=== PATIENT | female | born 1955 | race Caucasian/White ===

== ENCOUNTER 2016-10-22 09:46 | Inpatient (IN) | payer MEDICAID, OTHER ==
[~2016-10-22] VITALS: Ht 160 cm; Wt 106.5 kg
[2016-10-22 11:35] LABS: Basophils # (auto) 0.1 uL; Basophils % (auto) 0.6 % (0.0-2.0); CONDITION Y; Eosinophils # (auto) 0.3 uL; Hematocrit 35.3 % (36.0-46.0); Hemoglobin 12.1 g/dL (12.2-16.2); Lymphocytes # (auto) 1.2 uL; Mean Corpuscular Hemoglobin 31.2 pg (28.0-32.0); Mean Corpuscular Hgb Conc. 34.2 g/dL (32.0-36.0); Mean Corpuscular Volume 91.2 fL (80.0-100.0); Mean Platelet Volume 7.9 fL (6.9-10.8); Monocytes # (auto) 0.9 uL; Monocytes % (auto) 9.3 % (0.0-12.0); Neutrophils # (auto) 7.6 uL; Neutrophils % (auto) 75.1 % (37.0-80.0); Platelet Count (auto) 455 10^3/uL (140-450); Red Cell Distribution Width 13.9 % (11.8-14.3); White Blood Cell 10.2 10^3/uL (4.4-10.8)
[2016-10-22 11:49] LABS: Albumin 3.2 g/dL (3.4-5.0); BUN/Creatinine Ratio 22.6; Bilirubin, Total 0.6 mg/dL (0.2-1.0); Calcium 9.7 mg/dL (8.5-10.1); Potassium 5.2 mmol/L (3.5-5.1); Total Protein 7.7 g/dL (6.4-8.2)
[2016-10-22] MEDS ORDERED: SODIUM CHLORIDE 0.9% 1,000 ML IV ONE (13:19)
[2016-10-22] MEDS ORDERED: NALBUPHINE HCL 10 MG/1ml INJECTION IV ONE (13:30)
[2016-10-22] MEDS ORDERED: METOCLOPRAMIDE HCL 5MG/ml INJ 2ml VIAL IV ONE (13:30)
[2016-10-22 14:01] LABS: Urine Bilirubin Negative (Negative); Urine Blood Negative /uL (Negative); Urine Color Yellow (Yellow); Urine Glucose Normal (Normal); Urine Ketone Negative (Negative); Urine Nitrite Negative (Negative); Urine RBC <1 /hpf (0 - 4); Urine Urobilinogen Normal (Negative)
[2016-10-22 14:13] LABS: Magnesium 2.8 mg/dL (1.6-2.6)
[2016-10-22] MEDS ORDERED: cefTRIAXone 1GM/50ML D5W 50 ML IV ONE (15:30)
[2016-10-22] MEDS ORDERED: CLINDAMYCIN 300MG IV 50 ML IV ONE (15:45)
[2016-10-22] MEDS ORDERED: TEMAZEPAM 15 MG CAP PO PRN (16:00)
[2016-10-22] MEDS ORDERED: ACETAMINOPHEN 325 MG TAB PO PRN (16:00)
[2016-10-22] MEDS ORDERED: SODIUM POLYSTYRENE SULF 15GM/60ML SUSP PO ONE (16:00)
[2016-10-22 16:57] LABS: INR 0.99 (0.9-1.15); Prothrombin Time 10.8 sec (9.37-12.3)
[2016-10-22] MEDS: FAMOTIDINE 20 MG TAB PO SCH (17:10)
[2016-10-22] MEDS: CLINDAMYCIN 300MG IV 50 ML IV SCH (21:53)
[2016-10-22] MEDS: SODIUM CHLOR 0.9% PF (SALINE LOCK) 10ML VIAL IV SCH (21:53)
[2016-10-22] MEDS: ASCORBIC ACID 500 MG TAB PO SCH (21:54)
[2016-10-22 22:00] VITALS: BP 148/80
[2016-10-23] VITALS (7 sets, daily range): BP systolic 91–133; BP diastolic 57–92
[2016-10-23] MEDS: MORPHINE SULF INJ 2 MG/ML SYRINGE 1ML IV PRN ×3 (03:47→20:06)
[2016-10-23 05:46] LABS: Basophils # (auto) 0.1 uL; Basophils % (auto) 0.5 % (0.0-2.0); CONDITION Y; Eosinophils # (auto) 0.3 uL; Eosinophils % (auto) 2.5 % (0.0-7.0); Hematocrit 34.3 % (36.0-46.0); Hemoglobin 11.7 g/dL (12.2-16.2); Lymphocytes # (auto) 1.7 uL; Mean Corpuscular Hemoglobin 31.2 pg (28.0-32.0); Mean Corpuscular Hgb Conc. 34.2 g/dL (32.0-36.0); Mean Corpuscular Volume 91.4 fL (80.0-100.0); Mean Platelet Volume 7.5 fL (6.9-10.8); Monocytes % (auto) 9.2 % (0.0-12.0); Neutrophils # (auto) 7.8 uL; Neutrophils % (auto) 71.8 % (37.0-80.0); Platelet Count (auto) 498 10^3/uL (140-450); Red Cell Distribution Width 13.7 % (11.8-14.3); White Blood Cell 10.9 10^3/uL (4.4-10.8)
[2016-10-23] MEDS: CLINDAMYCIN 300MG IV 50 ML IV SCH ×3 (05:51→22:09)
[2016-10-23] MEDS: SODIUM CHLOR 0.9% PF (SALINE LOCK) 10ML VIAL IV SCH ×3 (05:53→22:09)
[2016-10-23 06:24] LABS: BUN/Creatinine Ratio 26.3; Bilirubin, Total 0.4 mg/dL (0.2-1.0); Calcium 9.6 mg/dL (8.5-10.1); Total Protein 7.5 g/dL (6.4-8.2)
[2016-10-23] MEDS: HYDROcodone-ACET 5/325MG TAB PO PRN ×2 (08:13→16:06)
[2016-10-23] MEDS: ASCORBIC ACID 500 MG TAB PO SCH ×2 (09:10→22:09)
[2016-10-23] MEDS: ZINC SULFATE 220 MG CAP PO SCH (09:10)
[2016-10-23] MEDS: cefTRIAXone 1GM/50ML D5W 50 ML IV SCH (09:10)
[2016-10-23] MEDS: MULTIPLE VITAMIN TAB PO SCH (09:10)
[2016-10-23] MEDS: FAMOTIDINE 20 MG TAB PO SCH (09:10)
[2016-10-23 10:58] LABS: Vitamin B12 1239 pg/mL (211-911)
[2016-10-23] MEDS: THIAMINE INJ 100 MG, MULTIPLE VITAMIN 10 ML, FOLIC ACID 1 MG, MAGNESIUM SULF SDV 50% 8 ... IV SCH ×5 (12:03)
[2016-10-23] MEDS: ONDANSETRON HCL 4 MG/2 ML VIAL IV PRN (13:39)
[2016-10-24 05:00] VITALS: BP_SYST 115; BP_SYST 122; BP_DIAS 65; BP_DIAS 71
[2016-10-24 05:08] LABS: Thyroxine (T4) 6.4 ug/dL (4.5-12.0)
[2016-10-24 05:08] LABS: Rheumatoid Arthritis Factor <10.0 IU/mL (0.0-13.9)
[2016-10-24] MEDS: CLINDAMYCIN 300MG IV 50 ML IV SCH ×3 (05:42→21:49)
[2016-10-24] MEDS: SODIUM CHLOR 0.9% PF (SALINE LOCK) 10ML VIAL IV SCH ×3 (05:43→21:49)
[2016-10-24] MEDS: cefTRIAXone 1GM/50ML D5W 50 ML IV SCH ×2 (08:26→21:49)
[2016-10-24] MEDS: ZINC SULFATE 220 MG CAP PO SCH (08:26)
[2016-10-24] MEDS: FAMOTIDINE 20 MG TAB PO SCH (08:26)
[2016-10-24] MEDS: MULTIPLE VITAMIN TAB PO SCH (08:26)
[2016-10-24 09:00] VITALS: BP 121/48
[2016-10-24] MEDS: HYDROcodone-ACET 5/325MG TAB PO PRN ×4 (09:26→23:50)
[2016-10-24] MEDS: ASCORBIC ACID 500 MG TAB PO SCH ×2 (09:26→23:51)
[2016-10-24 13:00] VITALS: BP 109/64
[2016-10-24] MEDS: THIAMINE INJ 100 MG, MULTIPLE VITAMIN 10 ML, FOLIC ACID 1 MG, MAGNESIUM SULF SDV 50% 8 ... IV SCH ×5 (13:12)
[2016-10-24 17:00] VITALS: BP 134/74
[2016-10-24] MEDS: DOCUSATE SOD 100 MG CAP PO PRN (19:38)
[2016-10-25 00:25] VITALS: BP 143/83
[2016-10-25] MEDS: CLINDAMYCIN 300MG IV 50 ML IV SCH ×3 (05:07→22:23)
[2016-10-25] MEDS: SODIUM CHLOR 0.9% PF (SALINE LOCK) 10ML VIAL IV SCH ×3 (05:07→22:23)
[2016-10-25] MEDS: HYDROcodone-ACET 5/325MG TAB PO PRN ×3 (05:07→22:23)
[2016-10-25 05:45] VITALS: BP 155/78
[2016-10-25 06:44] LABS: Potassium 4.3 mmol/L (3.5-5.1)
[2016-10-25 06:51] LABS: Albumin 2.7 g/dL (3.4-5.0); Calcium 9.8 mg/dL (8.5-10.1)
[2016-10-25 07:02] LABS: Bilirubin, Total 0.2 mg/dL (0.2-1.0); Total Protein 6.6 g/dL (6.4-8.2)
[2016-10-25 08:58] VITALS: BP 142/82
[2016-10-25] MEDS: ZINC SULFATE 220 MG CAP PO SCH (10:00)
[2016-10-25] MEDS: ASCORBIC ACID 500 MG TAB PO SCH ×2 (10:00→22:23)
[2016-10-25] MEDS: FAMOTIDINE 20 MG TAB PO SCH (10:00)
[2016-10-25] MEDS: MULTIPLE VITAMIN TAB PO SCH (10:00)
[2016-10-25] MEDS: MORPHINE SULF INJ 2 MG/ML SYRINGE 1ML IV PRN (12:04)
[2016-10-25 13:00] VITALS: BP 158/103
[2016-10-25 13:07] LABS: Antiproteinase 3 (PR-3) Ab <3.5 U/mL (0.0-3.5)
[2016-10-25] MEDS ORDERED: ceFAZolin 1GM/50ML D5W 50 ML IV ONE (13:28)
[2016-10-25] MEDS ORDERED: BUPIVACAINE 0.75% INJ 10ML MPV SDV IJ ONE (13:56)
[2016-10-25] MEDS ORDERED: ceFAZolin 1GM VL ONE (13:56)
[2016-10-25] MEDS ORDERED: fentaNYL CITRATE 100 MCG/2 ML VL ONE (14:17)
[2016-10-25] MEDS ORDERED: PROPOFOL 10 MG/ML 20 ML IV ONE (14:17)
[2016-10-25] MEDS ORDERED: fentaNYL CITRATE 5 ML ONE (14:21)
[2016-10-25] MEDS ORDERED: MORPHINE SULF INJ 2 MG/ML SYRINGE 1ML ONE (14:56)
[2016-10-25] MEDS ORDERED: ONDANSETRON HCL 4 MG/2 ML VIAL ONE (14:58)
[2016-10-25] MEDS ORDERED: ePHEDrine SULFATE 50 MG/ML AMP IV PRN (15:00)
[2016-10-25] MEDS ORDERED: MORPHINE SULF INJ 2 MG/ML SYRINGE 1ML IV PRN (15:00)
[2016-10-25] MEDS ORDERED: hydrALAZINE HCL 20 MG/ML VL IV PRN (15:00)
[2016-10-25] MEDS ORDERED: ONDANSETRON HCL 4 MG/2 ML VIAL IV ONE (15:00)
[2016-10-25] MEDS: THIAMINE INJ 100 MG, MULTIPLE VITAMIN 10 ML, FOLIC ACID 1 MG, MAGNESIUM SULF SDV 50% 8 ... IV SCH ×5 (15:54)
[2016-10-25 17:00] VITALS: BP 155/90
[2016-10-25 22:00] VITALS: BP 149/91
[2016-10-26] MEDS: HYDROcodone-ACET 5/325MG TAB PO PRN ×4 (04:38→20:38)
[2016-10-26 05:00] VITALS: BP 155/89
[2016-10-26] MEDS: CLINDAMYCIN 300MG IV 50 ML IV SCH ×3 (05:48→20:38)
[2016-10-26] MEDS: SODIUM CHLOR 0.9% PF (SALINE LOCK) 10ML VIAL IV SCH ×3 (05:49→20:37)
[2016-10-26 06:14] LABS: Potassium 4.7 mmol/L (3.5-5.1)
[2016-10-26 06:18] LABS: Albumin 2.8 g/dL (3.4-5.0); BUN/Creatinine Ratio 24.6
[2016-10-26 06:20] LABS: Bilirubin, Total 0.2 mg/dL (0.2-1.0)
[2016-10-26 08:00] VITALS: BP 150/96
[2016-10-26] MEDS: DOCUSATE SOD 100 MG CAP PO PRN (09:38)
[2016-10-26] MEDS: ASCORBIC ACID 500 MG TAB PO SCH ×2 (09:38→20:38)
[2016-10-26] MEDS: FAMOTIDINE 20 MG TAB PO SCH (09:38)
[2016-10-26] MEDS: MULTIPLE VITAMIN TAB PO SCH (09:38)
[2016-10-26] MEDS: cefTRIAXone 1GM/50ML D5W 50 ML IV SCH (09:38)
[2016-10-26] MEDS: ZINC SULFATE 220 MG CAP PO SCH (09:38)
[2016-10-26 12:00] VITALS: BP 148/82
[2016-10-26] MEDS: THIAMINE INJ 100 MG, MULTIPLE VITAMIN 10 ML, FOLIC ACID 1 MG, MAGNESIUM SULF SDV 50% 8 ... IV SCH ×5 (12:00)
[2016-10-26] MEDS: ALBUTEROL SULF 2.5 MG/0.5ML(0.5%) NEB SOLN NEB PRN ×2 (13:28→23:06)
[2016-10-26 16:11] VITALS: BP 148/82
[2016-10-26 17:00] VITALS: BP 160/97
[2016-10-26] MEDS: cloNIDine HCL 0.1 MG TAB PO PRN (18:04)
[2016-10-26 21:57] VITALS: BP 157/81
[2016-10-27] MEDS: HYDROcodone-ACET 5/325MG TAB PO PRN ×4 (02:10→23:28)
[2016-10-27] MEDS: DOCUSATE SOD 100 MG CAP PO PRN ×2 (02:10→10:08)
[2016-10-27 05:00] VITALS: BP 158/89
[2016-10-27] MEDS: CLINDAMYCIN 300MG IV 50 ML IV SCH ×3 (06:13→20:56)
[2016-10-27] MEDS: SODIUM CHLOR 0.9% PF (SALINE LOCK) 10ML VIAL IV SCH ×3 (06:13→20:56)
[2016-10-27] MEDS: MORPHINE SULF INJ 2 MG/ML SYRINGE 1ML IV PRN ×3 (06:49→20:57)
[2016-10-27 06:58] LABS: Albumin 2.6 g/dL (3.4-5.0); Calcium 9.4 mg/dL (8.5-10.1); Potassium 4.3 mmol/L (3.5-5.1)
[2016-10-27 07:02] LABS: Bilirubin, Total 0.2 mg/dL (0.2-1.0); Total Protein 6.4 g/dL (6.4-8.2)
[2016-10-27 08:13] VITALS: BP 154/87
[2016-10-27] MEDS: ALBUTEROL SULF 2.5 MG/0.5ML(0.5%) NEB SOLN NEB PRN ×2 (08:29→23:20)
[2016-10-27] MEDS: cefTRIAXone 1GM/50ML D5W 50 ML IV SCH (10:08)
[2016-10-27] MEDS: ASCORBIC ACID 500 MG TAB PO SCH ×2 (10:08→20:57)
[2016-10-27] MEDS: MULTIPLE VITAMIN TAB PO SCH (10:08)
[2016-10-27] MEDS: ZINC SULFATE 220 MG CAP PO SCH (10:08)
[2016-10-27] MEDS: FAMOTIDINE 20 MG TAB PO SCH (10:08)
[2016-10-27] MEDS: THIAMINE INJ 100 MG, MULTIPLE VITAMIN 10 ML, FOLIC ACID 1 MG, MAGNESIUM SULF SDV 50% 8 ... IV SCH ×5 (12:16)
[2016-10-27] MEDS: ONDANSETRON HCL 4 MG/2 ML VIAL IV PRN (12:19)
[2016-10-27 12:24] VITALS: BP 157/105
[2016-10-27 17:00] VITALS: BP 161/109
[2016-10-27] MEDS: cloNIDine HCL 0.1 MG TAB PO PRN (17:28)
[2016-10-27 21:02] VITALS: BP 155/90
[2016-10-28] MEDS: MORPHINE SULF INJ 2 MG/ML SYRINGE 1ML IV PRN (04:05)
[2016-10-28] MEDS: cloNIDine HCL 0.1 MG TAB PO PRN ×3 (05:29→17:16)
[2016-10-28] MEDS: CLINDAMYCIN 300MG IV 50 ML IV SCH ×2 (05:30→14:00)
[2016-10-28] MEDS: SODIUM CHLOR 0.9% PF (SALINE LOCK) 10ML VIAL IV SCH ×2 (05:31→14:00)
[2016-10-28 05:35] VITALS: BP 152/81
[2016-10-28 05:36] VITALS: BP 164/82
[2016-10-28] MEDS: ZINC SULFATE 220 MG CAP PO SCH (08:34)
[2016-10-28] MEDS: MULTIPLE VITAMIN TAB PO SCH (08:34)
[2016-10-28] MEDS: ASCORBIC ACID 500 MG TAB PO SCH (08:34)
[2016-10-28] MEDS: FAMOTIDINE 20 MG TAB PO SCH (08:34)
[2016-10-28] MEDS: cefTRIAXone 1GM/50ML D5W 50 ML IV SCH (08:34)
[2016-10-28 10:04] VITALS: BP 143/83
[2016-10-28] MEDS: HYDROcodone-ACET 5/325MG TAB PO PRN ×2 (10:31→15:56)
[2016-10-28] MEDS: THIAMINE INJ 100 MG, MULTIPLE VITAMIN 10 ML, FOLIC ACID 1 MG, MAGNESIUM SULF SDV 50% 8 ... IV SCH ×5 (11:56)
[2016-10-28 12:17] VITALS: BP 152/80
[2016-10-28] MEDS ORDERED: LEVO125T6 PO (12:47)
[2016-10-28] MEDS ORDERED: ASP81EC PO (12:47)
[2016-10-28] MEDS ORDERED: OMEP20CA74 PO (12:47)
[2016-10-28] MEDS ORDERED: LOR05T PO (12:47)
[2016-10-28] MEDS ORDERED: POTA10TA34 PO (12:47)
[2016-10-28] MEDS ORDERED: PRED1PAK9 PO (12:47)
[2016-10-28] MEDS ORDERED: GABA-497 PO (12:47)
[2016-10-28] MEDS ORDERED: SIMV-13 PO (12:47)
[2016-10-28 16:15] VITALS: BP 165/105
[2016-10-28 18:14] VITALS: BP 130/80
== END 2016-10-28 19:29 | disposition home or self-care (01) | DRG 364 ==
LOC: ER 09:46 → EDBD 09:46 → TELE 09:47 → EAST 17:50
PROVIDERS: ADMIT Internal Medicine; ATTEND Internal Medicine
PROC: 0QBQ0ZZ Excision of Right Toe Phalanx, Open Approach (ICD-10-PCS; 2016-10-25)
PROC: 0QBR0ZZ Excision of Left Toe Phalanx, Open Approach (ICD-10-PCS; principal; 2016-10-25 14:10)
DX: E11.621 Type 2 diabetes mellitus with foot ulcer (principal); L97.529 Non-pressure chronic ulcer of other part of left foot with unspecified severity; L97.519 Non-pressure chronic ulcer of other part of right foot with unspecified severity; N17.0 Acute kidney failure with tubular necrosis; G93.41 Metabolic encephalopathy; I13.2 Hypertensive heart and chronic kidney disease with heart failure and with stage 5 chronic kidney disease, or end stage renal disease; L03.032 Cellulitis of left toe; Z68.41 Body mass index [BMI] 40.0-44.9, adult; E44.0 Moderate protein-calorie malnutrition; E66.01 Morbid (severe) obesity due to excess calories; E87.1 Hypo-osmolality and hyponatremia; N18.6 End stage renal disease; E87.5 Hyperkalemia; E03.9 Hypothyroidism, unspecified; E11.22 Type 2 diabetes mellitus with diabetic chronic kidney disease; L03.031 Cellulitis of right toe; E83.41 Hypermagnesemia; E86.0 Dehydration; D63.8 Anemia in other chronic diseases classified elsewhere; J44.9 Chronic obstructive pulmonary disease, unspecified; M06.9 Rheumatoid arthritis, unspecified; I50.9 Heart failure, unspecified; M1A.9XX1 Chronic gout, unspecified, with tophus (tophi); M19.90 Unspecified osteoarthritis, unspecified site
CPT/HCPCS: 36415; 51702; 70450; 71010; 73630; 73718; 76775; 80053; 80061; 80307; 81001; 82570; 82607; 82746; 83520; 83605; 83735; 83970; 84100; 84156; 84300; 84443; 84484; 85025; 85610; 85652; 86038; 86160; 86256; 86431; 86803; 87040; 87070; 87075; 87205; 87340; 93005; 93306; 93886; 94640; 94761; 95819; 96374; 96375; 97110; 97116; 97163; 97530; J0690; J0696; J2405; J2704; J3490